=== PATIENT | female | born 1975 | race Hispanic/Latino ===

== ENCOUNTER 2022-06-28 14:33 | Emergency (ER) | payer MEDICAID, SELFPAY ==
[2022-06-28 14:47] VITALS: BP 161/99; PULSE 88; RESP 18; TEMP 37.1; O2SAT 99
--- NOTE | 2022-06-28 14:54 | PC.NURSE ---
This RN was in room when pt pulled pants off and took a glass vial w/ a silver lid that had a white powder substance in two tied bags out of underwear. PD took the substance after it was placed in a biohazard bag.
--- NOTE | 2022-06-28 15:01 | ED.GENADULT ---
HPI - General Adult General Chief complaint: Skin/Abscess/Foreign Body <Reinaldo Ramírez PA-C - Last Filed: 06/28/22 17:41> Stated complaint: drugs in vagina <Reinaldo Ramírez PA-C - Last Filed: 06/28/22 17:41> Time Seen by Provider: 06/28/22 14:43 <Reinaldo Ramírez PA-C - Last Filed: 06/28/22 17:41> Source: patient <SARA Greene Last Filed: 06/28/22 17:41> Mode of arrival: other (PD) <SARA Greene Last Filed: 06/28/22 17:41> Limitations: no limitations <Reinaldo Ramírez PA-C - Last Filed: 06/28/22 17:41> History of Present Illness HPI narrative: This is a 47-year-old female presents to the ED via police department with chief complaint of foreign body. According to police she tried to hide a file of crack cocaine in her vagina. Patient relates to me that she did try to hide the drugs but did not go up into the vagina. medical staff director was able to retrieve the vial which was in her underwear. Patient states that she has no medical complaints at this time. She is anxious because she does not want to go to retirement. Otherwise asymptomatic <Reinaldo Ramírez PA-C - Last Filed: 06/28/22 17:41> Review of Systems Review of Systems: CONSTITUTIONAL: Denies fever, chills, or sweats. EYES: Denies visual changes, redness, or discharge. ENT: Denies rhinorrhea, congestion, sore throat, or otalgia. CARDIOVASCULAR: Denies chest pain, palpitations, or edema. RESPIRATORY: Denies cough or dyspnea. GASTROINTESTINAL: Denies abdominal pain, nausea, vomiting, or diarrhea. GENITOURINARY: Denies dysuria or hematuria. SKIN: Denies rash or itching. MUSCULOSKELETAL: Denies back pain, joint pain, or myalgia. NEUROLOGIC: Denies headache, numbness, dizziness, or weakness. PSYCHIATRIC: Denies anxiety or depression. <SARA Greene Last Filed: 06/28/22 17:41> Exam Narrative: GENERAL: Well-appearing, well-nourished, and in no acute distress. HEAD: Normocephalic, atraumatic. EYES: PERRLA and EOMI. ENT: Nares clear, no rhinorrhea or epistaxis. Mucous membranes moist. Oropharynx without tonsillar hypertrophy exudate or other lesions. NECK: Supple. No adenopathy or masses. CHEST: No respiratory distress. Clear to auscultation. No wheezes rales or rhonchi HEART: Regular rate and rhythm. No murmur heard. Normal peripheral pulses. ABDOMEN: Soft, nontender, nondistended, normal active bowel sounds. EXTREMITIES: Normal range of motion. No edema. SKIN: Warm, dry, no rash. NEURO: Alert and oriented x3. No focal deficits. PSYCH: Anxious mood. Tearful. Appropriate affect. <Reinaldo Ramírez PA-C - Last Filed: 06/28/22 17:41> Course [facility]ORTER/PA Physician Supervision This visit was performed by both a physician and an APC. I performed all aspects of the MDM as documented. Patient surrendered drugs. She has no complaints. Appropriate for discharge. <Ministerio Velasquez MD - Last Filed: 06/28/22 18:16> Vital Signs Vital signs: Vital Signs Temperature 98.8 F 06/28/22 14:47 Pulse Rate 88 06/28/22 14:47 Respiratory Rate 18 06/28/22 14:47 Blood Pressure 161/99 H 06/28/22 14:47 Pulse Oximetry 99 06/28/22 14:47 Oxygen Delivery Room Air 06/28/22 14:47 Temperature 98.8 F 06/28/22 14:47 Pulse Rate 71 06/28/22 15:46 Respiratory Rate 19 06/28/22 15:46 Blood Pressure 144/81 H 06/28/22 15:46 Pulse Oximetry 100 06/28/22 15:46 Oxygen Delivery Room Air 06/28/22 14:47 <Reinaldo Ramírez PA-C - Last Filed: 06/28/22 17:41> Vital Signs Temperature 98.8 F 06/28/22 14:47 Pulse Rate 88 06/28/22 14:47 Respiratory Rate 18 06/28/22 14:47 Blood Pressure 161/99 H 06/28/22 14:47 Pulse Oximetry 99 06/28/22 14:47 Oxygen Delivery Room Air 06/28/22 14:47 Temperature 98.8 F 06/28/22 14:47 Pulse Rate 71 06/28/22 15:46 Respiratory Rate 19 06/28/22 15:46 Blood Pressure 144/81 H 06/28/22 15:46 Pulse Oximetry 100 06/28/22 15:46 Oxygen Delivery Room Air 06/01
--- NOTE | 2022-06-28 15:14 | PC.NURSE ---
Officer that received vial of powder contents was Cameron Sampson# [id number].
[2022-06-28 15:46] VITALS: BP 144/81; PULSE 71; RESP 19; O2SAT 100
== END 2022-06-28 15:50 ==
LOC: ANHED 15:49
PROVIDERS: Emergency Provider Physician Assistant
DX: T19.2XXA Foreign body in vulva and vagina, initial encounter (principal); Z65.3 Problems related to other legal circumstances; X58.XXXA Exposure to other specified factors, initial encounter
CPT/HCPCS: 99281